=== PATIENT | female | born 1990 | race African-American/Black ===

== ENCOUNTER 2016-12-22 17:22 | Emergency (ER) | payer OTHER ==
[~2016-12-22] VITALS: Ht 162.6 cm; Wt 65.8 kg
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
[2016-12-22] MEDS ORDERED: HYDROcodone/APAP 5/325MG 1 TAB TABLET PO ONE (18:15)
[2016-12-22 18:48] VITALS: BP 118/57
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
[2016-12-22] MEDS ORDERED: DIAZ5TAB PO (19:39)
[2016-12-22] MEDS ORDERED: IBUP-1060 PO (19:39)
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
== END 2016-12-22 19:56 | disposition home or self-care (01) ==
LOC: ER 17:22
DX: S09.90XA Unspecified injury of head, initial encounter (principal); M54.5 Low back pain; M79.605 Pain in left leg; V49.40XA Driver injured in collision with unspecified motor vehicles in traffic accident, initial encounter; Y93.89 Activity, other specified; Y99.8 Other external cause status; Y92.488 Other paved roadways as the place of occurrence of the external cause
CPT/HCPCS: 70450; 72125; 72131; 73590; 99284-25